=== PATIENT | female | born 1985 | race Caucasian/White ===

== ENCOUNTER 2019-07-11 14:41 | Observation (INO) | payer OTHER ==
[~2019-07-11] VITALS: Ht 160 cm; Wt 87.5 kg
[2019-07-11 14:45] VITALS: BP 124/75
[2019-07-11] MEDS ORDERED: LEVO-T50 MCG PO (15:01)
[2019-07-11] MEDS ORDERED: ESCITALOPRA5 MG/5 ML PO (15:01)
[2019-07-11] MEDS ORDERED: MIRENA1 EACH IY (15:02)
[2019-07-11] MEDS ORDERED: RIZATRIPTAN10 MG PO (15:02)
[2019-07-11] MEDS ORDERED: TOPAMAX100 MG PO (15:02)
[2019-07-11 15:07] LABS: URINE BILIRUBIN NEGATIVE (Negative); URINE BLOOD NEGATIVE (Negative); URINE CLARITY CLEAR; URINE COLOR YELLOW; URINE GLUCOSE-RANDOM NEGATIVE (Negative); URINE KETONES NEGATIVE (Negative); URINE LEUKOCYTES-REFLEX 1+ (Negative); URINE NITRITE-REFLEX NEGATIVE (Negative); URINE PROTEIN NEGATIVE (Negative)
[2019-07-11 15:11] LABS: SQUAMOUS >10 Many /LPF (0-3); URINE WBC-REFLEX 0-5 Rare /HPF (0-5)
[2019-07-11 15:12] LABS: BACTERIA-REFLEX None Seen /HPF (None Seen); CASTS None Seen /LPF (None Seen); CRYSTALS None Seen /LPF (None Seen); URINE RBC None Seen /HPF (0-2)
[2019-07-11 15:16] LABS: ABSOLUTE EOSINOPHILS 0.1 thou/uL (0.0-0.7); ABSOLUTE MONOCYTES 0.7 thou/uL (0.0-1.2); ABSOLUTE NEUTROPHILS 6.3 thou/uL (1.6-8.1); BASOPHILS 0.5 %; HEMATOCRIT 40.9 % (37.0-47.0); HEMOGLOBIN 13.9 gm/dL (12.0-15.0); LYMPHOCYTES 21.5 %; MCH 29.4 pg (26.0-34.0); MCV 86.5 fL (80.0-100.0); MONOCYTES 7.8 %; NUCLEATED RBCS 0 /100WBC; PLATELET COUNT* 309 thou/uL (150-400); POLYS 69.2 %; RBC 4.74 mil/uL (4.20-5.00); RDW-CV 13.7 % (10.5-14.5); WBC 9.1 thou/uL (4.0-11.0)
[2019-07-11 15:24] LABS: CALCIUM 9.4 mg/dL (8.5-10.1); POTASSIUM 3.6 mmol/L (3.5-5.1)
[2019-07-11 15:28] LABS: ALBUMIN 3.8 g/dL (3.4-5.0); TOTAL BILIRUBIN 0.5 mg/dL (<0.1-1.0)
[2019-07-11 17:34] VITALS: BP 133/89
--- NOTE | 2019-07-11 19:43 | OP ---
[address] [address] OPERATIVE REPORT Name: EMMANUEL GREENWOOD Room: [address] M.Chuy#: [id number] Admission: 07/11/19 Attend Phys: Swathi Helton DO Discharge: Date of : 89 Report #: [id number] THIS REPORT FOR: //name// CC: Sunitha Watts DO DICTATED BY: Sandeep Matthews DO DATE OF SERVICE: 07/11/2019 PREOPERATIVE DIAGNOSIS: Acute appendicitis. POSTOPERATIVE DIAGNOSIS: Acute appendicitis and umbilical hernia, reducible. SURGEON: Swathi Helton DO DRIVER'S LICENSE EXAMINER: Sandeep Matthews, PGY4 OPERATION: Laparoscopic appendectomy and primary repair of reducible umbilical hernia. ANESTHESIA: General and local. ESTIMATED BLOOD LOSS: 2 mL. SPECIMENS: Appendix. COMPLICATIONS: None. INDICATIONS: The patient is a 34-year-old female that presented to the Emergency Department with complaints of right lower quadrant pain and nausea. She was found on CT to have a dilated and inflamed appendix. She was informed of the risks and benefits of laparoscopic appendectomy with the risks including but not limited to bleeding, infection and damage to surrounding structures. She understood and decided to proceed with surgery. TECHNIQUE: After informed consent was obtained, the patient was brought to the operating and placed in a supine position. SCDs were on and running. Preoperative antibiotics were delivered. General anesthesia was administered with an ET tube. The patient was prepped and draped in usual sterile fashion. A surgical pause was held to confirm proper patient and procedure. Marcaine 0.5% was infiltrated inferior to the umbilicus. The skin was elevated and incised in a horizontal fashion using a #11 blade. Dissection was carried down to the hernia sac bluntly using S retractors and a Marisol. The hernia sac was circumferentially dissected using a combination of [place] [address] OPERATIVE REPORT Name: EMMANUEL GREENWOOD Room: [address]#: [id number] Admission: 07/11/19 Attend Phys: Swathi Helton DO Discharge: Date of : 89 Report #: [id number] The hernia sac was opened and the contents or preperitoneal fat were reduced. The hernia sac was from the umbilical skin. A Marisol was introduced through the fascial defect and used to bluntly enter the peritoneum. 0 [address] was used to place a stay suture on either side of the fascia. The 12 mm Feng port was introduced into the abdomen. The abdomen was insufflated. Stay sutures were used to secure the Feng port. Camera was introduced into the abdomen and brief exploration was undertaken. Attention was turned to the right lower quadrant. The ovary on the right was present, normal and nontorsed. The appendix was readily apparent and inflamed. There was no sign of abscess or perforation. The appendix was elevated with a laparoscopic [place]. [place] was used to make a window in the mesoappendix at the base. A 45 mm purple load CovZympien stapler was fired across the base of the appendix. An additional purple load was fired across the mesoappendix. The appendix was placed within an EndoCatch bag and placed aside. There was a small arterial bleed at the mesoappendix staple line, which was cauterized and hemostatic. The abdomen was briefly desufflated and the staple lines were observed and continued to be hemostatic. Prior to dissection, a 5 mm port in the suprapubic region was placed under direct visualization and the left lower quadrant another 5-mm port was placed under direct visualization. These ports were removed and there was no peritoneal bleeding. The abdomen was desufflated. The appendix and the Feng trocar were removed. Previous stay sutures were elevated and replaced with Carlo clamps. The fascial defect was further developed and preperitoneal adhesions to the hernia sac were taken down. A single [id number] using 0 Vicryl was used to approximate the fascia. This wound was closed in a layered fashion using 3-0 Vicryl and 4-0 Monocryl. The 5 mm port sites were closed using 4-0 Monocryl. Wounds were cleansed and dressed with Mastisol, Steri-Strips, 4 x 4's, and Tegaderms. The patient tolerated the procedure well. All counts were correct. The patient was extubated and transferred to the PACU in stable condition. <ELECTRONICALLY SIGNED> By: Swathi Helton DO 07/11/191942 23 39Swathi Helton DO /abdi
[2019-07-11 20:45] VITALS: BP 104/58
[2019-07-12 04:18] VITALS: BP 110/64
[2019-07-12 07:55] VITALS: BP 114/71
[2019-07-12 11:56] VITALS: BP 114/71
[2019-07-12] MEDS ORDERED: OXYCODONE HCL 55 MG PO (12:20)
[2019-07-12 13:36] VITALS: BP 114/71
[2019-07-12] MEDS ORDERED: COLACE100 MG PO (13:37)
[2019-07-12] MEDS ORDERED: ADVIL200 M1 PO (13:38)
[2019-07-12] MEDS ORDERED: DOLOGEN CAPLET1 EACH PO (13:39)
[2019-07-12 13:53] VITALS: BP 114/71
--- NOTE | 2019-07-15 14:06 | PATH ---
[address] [address] PATHOLOGY RPT PROCEDURE Name: ALFONSO JANSEN Room: [address] Samanta#: [id number] Admission: 07/11/19 Date of : 89 Discharge: 07/12/19 Report #: [id number] Path Case #: [id number] [facility] Accession Number: [id number] . 01 Material submitted: . appendix - APPENDIX . 01 Clinical history: . Appendicitis . 01 Frozen section diagnosis: . . . /QMS . 02 Diagnosis: Appendix: - Chronic and acute appendicitis, periappendicitis and serositis. (NOEL:lorri; 07/15/2019) QMS 07/15/2019 1132 Local . 02 Electronically signed: . Errol Sarmiento MD, Pathologist NPI- [id number] . 01 Gross description: . The specimen is received in formalin, labeled "Alfonso Jansen, appendix" and consists of an appendix measuring 5.8 in length and up to 0.8 in diameter with mesoappendix measuring 1.9 thick. The serosa is pink-loza and hemorrhagic. The margin is closed with a line of roderick and inked black. Sectioning reveals a pinpoint lumen. Pegger sections are submitted in A1. (SDY; 07/14/2019) SYU/SYU 07/14/2019 1032 Local . 02 Pathologist provided ICD-10: K35.80 . 02 CPT . 029377 Specimen Comment: A courtesy copy of this report has been sent to Specimen Comment: [phone], . Specimen Comment: Report sent to / DR CERVANTES Performed at: [address] [id number] MD Vinny Jimenes MD Phone: [phone] Performed at: 02 [place] [address] PATHOLOGY RPT PROCEDURE Name: ALFONSO JANSEN Room: [address] Taya England#: [id number] Admission: 07/11/19 Date of : 89 Discharge: 07/12/19 Report #: [id number] Path Case #: [id number] [facility], [place] [id number] MD Errol Sarmiento MD Phone: [phone]
== END 2019-07-12 14:17 | disposition home or self-care (01) ==
LOC: M.ERS 14:41 → M.SUR 14:41 → M.TBA 17:32 → M.ERS 17:36 → M.3W 20:30
PROVIDERS: Physician Assistant; ADMIT Surgery
DX: K35.80 Unspecified acute appendicitis (principal); K36 Other appendicitis; E03.9 Hypothyroidism, unspecified; G43.909 Migraine, unspecified, not intractable, without status migrainosus; Z79.899 Other long term (current) drug therapy; K42.9 Umbilical hernia without obstruction or gangrene

== ENCOUNTER 2020-12-15 12:05 | Emergency (ER) | payer OTHER ==
[~2020-12-15] VITALS: Ht 157.5 cm; Wt 86.2 kg
[~2020-12-15 12:05] MED LIST: ADVIL200 M1 PO; COLACE100 MG PO; DOLOGEN CAPLET1 EACH PO; ESCITALOPRA5 MG/5 ML PO; LEVO-T50 MCG PO; MIRENA1 EACH IY; OXYCODONE HCL 55 MG PO; RIZATRIPTAN10 MG PO; TOPAMAX100 MG PO
[2020-12-15 12:47] LABS: ABSOLUTE MONOCYTES 0.5 thou/uL (0.0-1.2); ABSOLUTE NEUTROPHILS 8.3 thou/uL (1.6-8.1); BASOPHILS 0.3 %; EOSINOPHILS 0.4 %; HEMATOCRIT 41.6 % (37.0-47.0); LYMPHOCYTES 10.1 %; MCH 29.2 pg (26.0-34.0); MCHC 33.7 g/dL (28.0-37.0); MCV 86.7 fL (80.0-100.0); MONOCYTES 5.3 %; MPV 7.5 fl. (7.2-11.1); NUCLEATED RBCS 0 /100WBC; PLATELET COUNT* 343 thou/uL (150-400); POLYS 83.9 %; RDW-CV 13.5 % (10.5-14.5); WBC 9.9 thou/uL (4.0-11.0)
[2020-12-15 12:56] LABS: CALCIUM 8.7 mg/dL (8.5-10.1); CREATININE 1.2 mg/dL (0.6-1.3)
[2020-12-15 13:00] LABS: ALBUMIN 3.9 g/dL (3.4-5.0); TOTAL BILIRUBIN 0.6 mg/dL (<0.1-1.0); TOTAL PROTEIN 8.3 g/dL (6.4-8.2)
[2020-12-15 14:32] LABS: URINE BILIRUBIN NEGATIVE (Negative); URINE BLOOD 1+ (Negative); URINE CLARITY CLEAR; URINE COLOR YELLOW; URINE GLUCOSE-RANDOM NEGATIVE (Negative); URINE KETONES TRACE (Negative); URINE LEUKOCYTES-REFLEX NEGATIVE (Negative); URINE NITRITE-REFLEX NEGATIVE (Negative); URINE PROTEIN 1+ (Negative); URINE SPECIFIC GRAVITY 1.025 (1.005-1.030); URINE UROBILINOGEN 0.2 E.U./dl (0.2-1.0)
[2020-12-15] MEDS ORDERED: NORCO 10-325 T1 EACH PO (14:35)
[2020-12-15] MEDS ORDERED: ONDANSETRON HCL4 M2 PO (14:35)
[2020-12-15] MEDS ORDERED: ZOFRAN ODT4 MG PO ×2 (14:35→14:42)
[2020-12-15 14:37] LABS: SQUAMOUS >10 Many /LPF (0-3)
[2020-12-15 14:38] LABS: BACTERIA-REFLEX >30 Many /HPF (None Seen); CASTS None Seen /LPF (None Seen); CRYSTALS None Seen /LPF (None Seen); MUCUS 0-3 Light strn/LPF (None Seen); URINE RBC 0-2 Rare /HPF (0-2); URINE WBC-REFLEX None Seen /HPF (0-5)
[2020-12-15] MEDS ORDERED: MACROBID 100 M100 MG PO (14:41)
[2020-12-15] MEDS ORDERED: FLOMAX0.4 MG PO (14:42)
[2020-12-15 15:05] VITALS: BP 118/84
== END 2020-12-15 15:07 | disposition home or self-care (01) ==
LOC: M.ERS 12:05
PROVIDERS: Physician Assistant
DX: N20.1 Calculus of ureter (principal); R11.2 Nausea with vomiting, unspecified; Z88.1 Allergy status to other antibiotic agents; Z88.0 Allergy status to penicillin; Z90.49 Acquired absence of other specified parts of digestive tract